=== PATIENT | female | born 2000 | race Hispanic/Latino ===

== ENCOUNTER 2021-01-15 09:19 | Observation (INO) | payer OTHER ==
[~2021-01-15] VITALS: Ht 165.1 cm; Wt 90.7 kg
== END 2021-01-15 11:40 | disposition home or self-care (01) ==
LOC: EDH 09:19 → INTOOBSV 09:51 → LDH 09:51 → UNDOADMIN 09:51 → UNDODISIN 11:40
PROVIDERS: ADMIT Obstetrics & Gynecology; ATTEND Obstetrics & Gynecology
DX: O26.893 Other specified pregnancy related conditions, third trimester (principal); Z3A.33 33 weeks gestation of pregnancy; V49.88XA Car occupant (driver) (passenger) injured in other specified transport accidents, initial encounter; Y93.89 Activity, other specified; Y92.410 Unspecified street and highway as the place of occurrence of the external cause
CPT/HCPCS: 59025; 76805; 99284; G0378 ×2